=== PATIENT | male | born 1980 | race Native Hawaiian/Other Pacific Islander ===

== ENCOUNTER 2023-02-23 15:22 | Emergency (ER) | payer OTHER ==
[~2023-02-23] VITALS: Ht 167.6 cm; Wt 73.9 kg
[~2023-02-23 15:22] MED LIST: DIAZ5TAB20 PO; DULCOLAX 5MG TAB PO; FLUOXETINE20 MG PO; HALO50IN4 IM; HALO5INJ3 IM; LITH300C3 PO; LITHIUM CARB300 M1 PO; LORA0.5T17 PO; MAGNSUS68 PO; MULTIVITAMI1 PO; MULTTAB52 PO; SENOKOT8.6 MG PO; TYLENOL 8 HOUR650 MG PO
[2023-02-23 15:46] LABS: PLATELET COUNT 226 K/uL (142-355)
[2023-02-23 15:53] LABS: POTASSIUM 3.4 mmol/L (3.6-5.2)
[2023-02-23 16:15] VITALS: BP 104/60; TEMP 98.2
[2023-03-08] MEDS ORDERED: HALO50IN4 IM (12:55)
[2023-03-08] MEDS ORDERED: DULCOLAX 5MG TAB PO (12:55)
[2023-03-08] MEDS ORDERED: ACET-206 PO (12:55)
[2023-03-08] MEDS ORDERED: LITH300C3 PO (12:56)
[2023-03-08] MEDS ORDERED: LORA0.5T17 PO (12:56)
[2023-03-08] MEDS ORDERED: MAGNSUS68 PO (12:56)
[2023-03-08] MEDS ORDERED: MEGE40TA32 PO (12:57)
== END 2023-02-23 16:15 | disposition home or self-care (01) ==
LOC: ED 15:22
PROVIDERS: Family Medicine
DX: F20.9 Schizophrenia, unspecified (principal); Z91.199 Patient's noncompliance with other medical treatment and regimen due to unspecified reason; Z02.79 Encounter for issue of other medical certificate
CPT/HCPCS: 80053; 85027; 87635; 99283; U0003

== ENCOUNTER 2023-03-24 21:40 | Emergency (ER) | payer OTHER ==
[~2023-03-24] VITALS: Ht 170.2 cm; Wt 73.5 kg
[~2023-03-24 21:40] MED LIST changes: +ACET-206 PO; +MEGE40TA32 PO
[2023-03-24 21:46] VITALS: TEMP 97.7
[2023-03-24 22:08] LABS: PLATELET COUNT 298 K/uL (142-355)
[2023-03-24 22:17] LABS: POTASSIUM 3.2 mmol/L (3.6-5.2)
[2023-03-24 23:00] VITALS: BP 113/70
[2023-03-25] MEDS ORDERED: DULCOLAX5 MG PO (07:43)
[2023-03-25] MEDS ORDERED: FLUPHENAZINE25 MG/ML IM (07:45)
[2023-03-25] MEDS ORDERED: LORA0.5T17 PO (07:46)
[2023-03-25] MEDS ORDERED: MILK OF MA400 MG/5 M PO (07:47)
[2023-03-25] MEDS ORDERED: MEGE40TA32 PO (07:47)
[2023-03-25] MEDS ORDERED: VALP250S3 PO (07:49)
== END 2023-03-24 23:00 | disposition other institution (70) ==
LOC: ED 21:40
PROVIDERS: Family Medicine
DX: R41.82 Altered mental status, unspecified (principal); F20.9 Schizophrenia, unspecified; R45.6 Violent behavior; R45.1 Restlessness and agitation; Z02.79 Encounter for issue of other medical certificate
CPT/HCPCS: 80053; 81002; 85027; 87635; 93005; 99283; U0003